=== PATIENT | male | born 1945 | race Caucasian/White ===

== ENCOUNTER 2017-03-08 14:00 | Inpatient (IN) | payer OTHER ==
[2017-03-08 14:07] VITALS: BMI 30.1
--- NOTE | 2017-03-08 14:19 | PDOC ---
History of Present Illness - General Chief Complaint: Nausea/Vomiting Stated Complaint: ABD PAIN,VOMITING Time Seen by Provider: 03/08/17 14:14 History Source: Patient Exam Limitations: No Limitations - History of Present Illness Initial Comments: 03/08/17 14:45 71 yo M with significant PMHx of HTN, CVA (s/p TPA) and BPH (TURP) presents to ED for one day h/o nausea and diarrhea. He states that since this morning after breakfast he felt upset stomach. He endorses 4 bouts of non-bloody diarrhea. While in ED he has vomited 2x non-bilous, non-bloody.Denies fevers, recent travel, recent antibiotic use, sick contacts, CP,HACKETT, SOB, abd. pain. Timing/Duration: 4-6 hours Severity: mild Modifying Factors: improves with: eating Associated Symptoms: reports: nausea/vomiting Past History - Past Medical History Allergies/Adverse Reactions: Allergies Allergy/AdvReac Type Severity Reaction Status Date / Time No Known Allergies Allergy Verified 03/08/17 14:07 Home Medications: Ambulatory Orders Amlodipine Bes/Olmesartan Med [Nathalia 10-40 mg Tablet] 1 each PO DAILY 03/08/17 Aspirin [ASA -] 81 mg PO DAILY 03/08/17 Atorvastatin Ca [Lipitor] 0 mg PO HS 03/08/17 Omeprazole Magnesium [Prilosec] 0 mg PO DAILY 03/08/17 HTN: Yes - Psycho/Social/Smoking Cessation Hx Anxiety: No Suicidal Ideation: No Smoking History: Never smoked Hx Alcohol Use: No Drug/Substance Use Hx: No Substance Use Type: None Review of Systems - Review of Systems Able to Perform ROS?: Yes Is the patient limited Mexican proficient: No Constitutional: Yes: Loss of Appetite Respiratory: No: Cough, Shortness of Breath Cardiac (ROS): No: Chest Pain, Edema ABD/GI: Yes: Diarrhea, Vomiting. No: Blood Streaked Bowels, Rectal Bleeding *Physical Exam - Vital Signs Last Vital Signs Temp Pulse Resp BP Pulse Ox 98.2 F 64 18 133/90 98 03/08/17 14:05 03/08/17 14:05 03/08/17 14:05 03/08/17 14:05 03/08/17 14:05 - Physical Exam General Appearance: Yes: Mild Distress HEENT: positive: EOMI, KEN Neck: positive: Supple Respiratory/Chest: positive: Lungs Clear, Normal Breath Sounds. negative: Respiratory Distress, Accessory Muscle Use Cardiovascular: positive: Tachycardia, Irregularly Irregular. negative: Edema, JVD, Murmur Vascular Pulses: Dorsalis-Pedis (R): 2+, Doralis-Pedis (L): 2+ Gastrointestinal/Abdominal: positive: Normal Bowel Sounds, Flat, Soft, Tenderness (mild epigastric. ). negative: Pulsatile Mass Musculoskeletal: positive: Normal Inspection, CVA Tenderness Extremity: positive: Normal Inspection, Normal Range of Motion Integumentary: positive: Normal Color, Dry, Warm. negative: Cyanotic, Erythema , Jaundice Neurologic: positive: Fully Oriented, Alert, Normal Mood/Affect, Normal Response , Motor Strength 5/5 Heart Score/ECG Review - ECG Intrepretation Rhythm: Irregularly Irregular - [place]: Normal - ECG Impressions Normal ECG: No Non-specific ST Elevation: No Ischemic Changes: No Tachycardia: Afib w/rapid Vent rate ED Treatment Course - LABORATORY CBC & Chemistry Diagram: 03/08/17 14:50 03/08/17 14:50 - RADIOLOGY Chest X-Ray Result: No Infiltrates Radiograph Interpretation: 03/08/17 16:49 TYPE/EXAM: RESULT: [id number] RAD/CHEST X-RAY PORTABLE* Rule out pneumonia or congestive heart failure Portable chest x-ray semierect Since 07/28/2009, the cardiac silhouette remains within normal limits in size and the lung is clear. Mediastinum and visualized osseous structures appear intact IMPRESSION: No significant interval change or acute lung disease is present. Reported By: Abel Guy MD Medical Decision Making - Medical Decision Making 03/08/17 14:51 71 yo M with significant PMHx of HTN, CVA (s/p TPA) and BPH (TURP) presents to ED for one day h/o nausea and diarrhea. Most likely viral enteritis. Will get stat labs (cbc, cmp, lipase) . Also ordered for baseline EKG. Will give zofran and pepcid for nausea as well bolus of 1L NS. 03/08/17 16:25 EKG - revealed afib with RVR. this is new onset given that I spoke with primary Dr. Sorto and no prior h/o afib. * Will order Mg, and troponin I * started on Lovenox 100mg SQ *DC/Admit/Observation/Transfer Diagnosis at time of Disposition: New onset a-fib, Gastroenteritis - Discharge Dispostion Admit: Yes - Referrals Referrals: Ihsan Sorto MD [Non Staff, Medical] - Rodney Rodriguez MD [Primary Care Provider] -
[2017-03-08] MEDS ORDERED: SODIUM CHLORIDE 1,000 ML IV STA ×2 (14:38→18:41)
[2017-03-08] MEDS ORDERED: ONDANSETRON 4 MG/2 ML VIAL IVPB ONE (14:38)
[2017-03-08] MEDS ORDERED: ONDANSETRON 4 MG/2 ML VIAL ONE (14:50)
[2017-03-08] MEDS ORDERED: FAMOTIDINE 20 MG/50 ML IVPB 50 ML IVPB ONE ×2 (15:06→15:12)
[2017-03-08 15:09] LABS: BASOPHIL 0.4 % (0-2.0); EOSINOPHIL 1.6 % (0-4.5); MCH 29.5 pg (25.7-33.7); MCHC 33.1 g/dl (32.0-35.9); MEAN CELL VOLUME 89.1 fl (80-96); MEAN PLT VOLUME 7.5 fl (7.5-11.1); NEUTROPHILS 86.3 % (42.8-82.8); PLATELET COUNT 242 K/MM3 (134-434); RDW 13.6 % (11.9-15.9); WHITE BLOOD COUNT 16.1 K/mm3 (4.0-10.0)
[2017-03-08] MEDS ORDERED: INSULIN (NOVOLOG MIX 70/30) 100 UNITS/ML MDV SQ ONE (15:13)
[2017-03-08] MEDS ORDERED: diazePAM CARPU-JECT 10 MG/2 ML DISP.SYRIN IVPUSH ONE ×2 (15:14→15:28)
--- NOTE | 2017-03-08 15:19 | PDOC ---
Attending Attestation - Resident Resident Name: Musa Rodgers - ED Attending Attestation I have performed the following: I have examined & evaluated the patient, The case was reviewed & discussed with the resident, I agree w/resident's findings & plan, Exceptions are as noted - HPI HPI: 03/08/17 15:11 71-year-old male with history of CVA and hypertension presents with nausea/ vomiting/diarrhea that began this morning after eating some cheese cake. No other red flags in terms of travel/sick contact/antibiotics, no abdominal pain. No cardiopulmonary complaints. - Physicial Exam PE: 03/08/17 15:12 blood pressure 130/90 Generally well-appearing, dry mucosa tachycardia abdomen benign, no guarding/rebound neuro intact - Critical Care Time Total Critical Care Time: 30 Critical Care Statement: The care of this patient involved high complexity decision making to prevent further life threatening deterioration of the patient 's condition and/or to evalute & treat vital organ system(s) failure or risk of failure. - Medical Decision Making 03/08/17 15:14 Patient seen and evaluated with the resident. I agree with the overall evaluation, assessment, and management with the following summary of visit: 71-year-old male presents with nausea/vomiting/diarrhea without abdominal pain, question viral versus toxin mediated. No cardiopulmonary complaints, no peritoneal findings. checking labs, anti-emetic, antacid ekg shows new afib with rvr: ivf, rate control reassess, likely admission 03/08/17 16:42 rate controlled with cardizem IV, remains in afib. given lovenox. cardiology consulted + leukocytosis, Cr slightly elevated. will admit for cardiac monitoring/evaluation
[2017-03-08 15:23] LABS: ALBUMIN 4.2 g/dl (3.4-5.0); BILIRUBIN,TOTAL 0.4 mg/dL (0.2-1.0); CALCIUM 9.3 mg/dL (8.5-10.1); COCKROFT - GAULT 64.25; CREATININE 1.4 mg/dL (0.7-1.3)
[2017-03-08] MEDS ORDERED: diazePAM CARPU-JECT 10 MG/2 ML DISP.SYRIN ONE (15:23)
[2017-03-08] MEDS ORDERED: dilTIAZem HCL 50 MG/10 ML - 10 ML VIAL IVPUSH ONE (15:29)
[2017-03-08] MEDS ORDERED: dilTIAZem HCL 125 MG/25 ML - 25 ML VIAL ONE (15:33)
[2017-03-08] MEDS ORDERED: ENOXAPARIN NA (PORCINE) 100 MG/1 ML DISP.SYRIN SQ ONE ×2 (15:52→16:27)
[2017-03-08] MEDS ORDERED: dilTIAZem HCL 30 MG TABLET (FP) PO ONE (15:52)
[2017-03-08] MEDS ORDERED: dilTIAZem HCL 30 MG TABLET (FP) ONE (16:27)
[2017-03-08 16:48] LABS: TROPONIN I < 0.02 ng/ml (0.00-0.05)
[2017-03-08 16:54] LABS: MAGNESIUM 2.3 mg/dL (1.8-2.4)
--- NOTE | 2017-03-08 17:58 | CON.CARD ---
Consult Consult Specialty:: Cardiology Referred by:: ER Reason for Consultation:: Newly dx afib - History of Present Illness Chief Complaint: nausea, vomiting, diarrhea, abd pain History of Present Illness: 71 year old man with a history of HTN, HLD, CVA 2009 s/p TPA, BPH, presented to the ER with nausea, vomiting, diarrhea and noted to be in newly dx afib with RVR. Pt seen and examined in the ER in nad. GI symptoms are improving. States he follows closely with his PMD Dr. Sorto who was contacted by the ER and confirmed that he has no history of Afib. Pt denies any palpitations. No chest pain, sob. No pnd, orthopnea, or LE edema. No lightheadedness or dizziness. Denies any bleeding. No black or bloody stools. - History Source History Provided By: Patient, Medical Record Limitations to Obtaining History: No Limitations - Past Medical History JAVASCRIPT WEB DEVELOPER: Yes: CVA Cardio/Vascular: Yes: HTN, Hyperlipdemia Renal/: Yes: BPH - Alcohol/Substance Use Hx Alcohol Use: No - Smoking History Smoking history: Never smoked - Social History ADL: Independent History of Recent Travel: No Home Medications - Allergies Allergies/Adverse Reactions: Allergies Allergy/AdvReac Type Severity Reaction Status Date / Time No Known Allergies Allergy Verified 03/08/17 14:07 - Home Medications Home Medications: Ambulatory Orders Amlodipine Bes/Olmesartan Med [Nathalia 10-40 mg Tablet] 1 each PO DAILY 03/08/17 Aspirin [ASA -] 81 mg PO DAILY 03/08/17 Atorvastatin Ca [Lipitor] 0 mg PO HS 03/08/17 Omeprazole Magnesium [Prilosec] 0 mg PO DAILY 03/08/17 Family Disease History - Family Disease History Family History: Denies Review of Systems - Review of Systems Constitutional: denies: No Symptoms, Chills, Diaphoresis, Fever, Lethargy, Loss of Appetite, Malaise, Night Sweats, Unintentional Wgt. Loss, Weakness, Other Eyes: denies: No Symptoms, Blind Spots, Blurred Vision, Double Vision, Eye Pain , Floaters, Photophobia, Recent Change in Vision, Other HENT: denies: No Symptoms, Difficult Swallowing, Ear Discharge, Ear Pain, Epistaxis, Gingival Bleeding, Hearing Loss, Mouth Swelling, Nasal Congestion, Ocular Prosthesis, Throat Pain, Toothache, Ringing in Ears, Other Neck: denies: No Symptoms, Decreased ROM, Lumps, Pain on Movement, Stiffness, Swollen Glands, Tenderness, Other Cardiovascular: denies: No Symptoms, Chest Pain, Edema, Palpitations, Shortness of Breath, Other Respiratory: denies: No Symptoms, Cough, Exercise Intolerance, Hemoptysis, Orthopnea, PND, Snoring, SOB, SOB on Exertion, Wheezing, Other Gastrointestinal: reports: Abdominal Pain, Diarrhea, Nausea, Vomiting. denies: No Symptoms, Bloating, Constipation, Dysphagia, Indigestion, Melena, Rectal Bleeding, Vomiting Blood, Other Genitourinary: denies: No Symptoms, Burning, Discharge, Dysuria, Flank Pain, Frequency, Hematuria, Incontinence, Lesions, Menses, Pain, Testicular Mass, Testicular Pain, Testicular Swelling, Urgency, Vaginal Bleeding, Other Breasts: denies: No Symptoms Reported, See HPI, Breast Implants, Discharge from Nipple, Lumps, Pain, Skin Changes, Other Musculoskeletal: denies: No Symptoms, Back Pain, Crepitus, Decreased ROM, Extremity Pain, Joint Pain, Joint Swelling, Muscle Pain, Muscle Cramps, Muscle Weakness, Other Integumentary: denies: No Symptoms, Blister, Bruising, Change in Color, Eczema, Erythema, Incision, Lesions, Lump, Pallor, Pruritis, Rash, Wound, Other Neurological: denies: No Symptoms, Change in LOC, Change in Speech, Confusion, Dizziness, Headache, Incoordination, Numbness, Parasthesia, Pre-Existing Deficit , Seizure, Syncope, Tremors, Unsteady Gait, Weakness, Other Endocrine: denies: No Symptoms, Excessive Sweating, Flushing, Increased Hunger, Increased Thirst, Intolerance to Cold, Intolerance to Heat, Unexplained Weight Gain, Unexplained Weight Loss, Other Hematology/Lymphatic: denies: No Symptoms, Easily Bruised, Excessive Bleeding, Swollen Glands, Other Psychiatric: denies: No Symptoms, Altered Sleep Pattern, Anxiety, Depression, Hallucinations, Panic, Paranoia, Suicidal, Other - Risk Factors Known Risk Factors: Yes: Hypercholesterolemia, Hypertension, Prior [place] /Emb Stroke Vital Signs: Vital Signs Temperature 98.2 F 03/08/17 14:05 Pulse Rate 96 H 03/08/17 15:35 Respiratory Rate 18 03/08/17 15:35 Blood Pressure 122/60 03/08/17 15:35 O2 Sat by Pulse Oximetry (%) 98 03/08/17 15:35 Constitutional: Yes: Well Nourished, No Distress, Calm Eyes: Yes: WNL, Conjunctiva Clear, EOM Intact, PERRL HENT: Yes: WNL, Atraumatic, Normocephalic Neck: Yes: WNL, Supple, Trachea Midline Respiratory: Yes: WNL, Regular, CTA Bilaterally. No: Rales, Rhonchi, Wheezes Gastrointestinal: Yes: WNL, Normal Bowel Sounds. No: Distention, Tenderness Renal/: Yes: WNL Cardiovascular: Yes: Tachycardia, Pulse Irregular. No: Bradycardia, Gallop, Rub , Varicosities JVD: No Carotid Bruit: No PMI: Non-Displaced Heart Sounds: Yes: S1, S2. No: Split S2, S3, S4, Clicks, Gallop, Rub, Bruit Murmur: No: Systolic Murmur, Diastolic Murmur Musculoskeletal: Yes: WNL, Other (L calf cramps) Extremities: Yes: WNL Edema: No Peripheral Pulses WNL: Yes Peripheral Pulses: 2+ Left Doralis Pedis, 2+ Right Dorsalis Pedis Integumentary: Yes: WNL Neurological: Yes: WNL, Alert, Oriented, Cran Nerves II-XII Intact ...Motor Strength: WNL Psychiatric: Yes: WNL, Alert, Oriented - Other Data Labs, Other Data: CBC, BMP 03/08/17 14:50 03/08/17 14:50 Troponin, BNP 03/08/17 14:45 Troponin I < 0.02 Troponin, BNP 03/08/17 14:45 Troponin I < 0.02 ekg-AFib 127bpm, nonspecific ST abnl Echo: Pending Imaging - Results Chest X-ray: Report Reviewed, Image Reviewed EKG: Report Reviewed, Image Reviewed Other: Report Reviewed, Image Reviewed Problem List - Problems (1) Gastroenteritis Code(s): K52.9 - NONINFECTIVE GASTROENTERITIS AND COLITIS, UNSPECIFIED (2) New onset a-fib Code(s): I48.91 - UNSPECIFIED ATRIAL FIBRILLATION (3) Atrial fibrillation with RVR Code(s): I48.91 - UNSPECIFIED ATRIAL FIBRILLATION (4) Anticoagulation management encounter Code(s): Z51.81 - ENCOUNTER FOR THERAPEUTIC DRUG LEVEL MONITORING Z79.01 - KENNEL HELPER (CURRENT) USE OF ANTICOAGULANTS (5) HTN (hypertension) Code(s): I10 - ESSENTIAL (PRIMARY) HYPERTENSION (6) HLD (hyperlipidemia) Code(s): E78.5 - HYPERLIPIDEMIA, UNSPECIFIED (7) CVA (cerebral vascular accident) Code(s): I63.9 - CEREBRAL INFARCTION, UNSPECIFIED Assessment/Plan 71 year old man with a history of HTN, HLD, CVA 2009 s/p TPA, BPH, presented to the ER with nausea, vomiting, diarrhea and noted to be in newly dx afib with RVR. Atrial fibrillation-newly diagnosed with RVR in the setting of nausea, vomiting , diarrhea -likely paroxysmal afib -HR improving with tx in the ER, given Cardizem, IVF, Lovenox -monitor on tele -likely will convert to NSR overnight with further treatment -will start Toprol XL 25mg daily first dose now (pt is on amlodipine for HTN, will try to avoid 2 calcium channel blockers) -discussed risks/benefits/alternatives of full AC with pt, he has a history of CVA and HTN, full AC is indicated -will start eliquis 5mg po bid to start at 430am tomorrow (12hours after Lovenox given) -need for continued ASA (in addition to full AC) to be determined by PMD or neurologist as he is on it due to his past CVA -check echo tomorrow am HTN-adequately controlled -cont home Nathalia -starting Toprol as above HLD -cont home statin
--- NOTE | 2017-03-08 18:34 | PN ---
Teaching Attending Note Name of Resident: Cassy Johnstno ATTENDING PHYSICIAN STATEMENT I saw and evaluated the patient. I reviewed the resident's note and discussed the case with the resident. I agree with the resident's findings and plan as documented. SUBJECTIVE:71yo M c/o sudden onset of N/V/D that started today. multiple episodes of retching with vomiting bilious material and food particles. 4 episodes of loose BM. pt notes he ate cheesecake which sat out on the counter for several days (when it shouldve been refrigerated) stated he started to feel lightheaded which prompted him to the ER. stated that he had carotid dopplers done by PMD last month and gets EKG twice a year and has never been told he had afib. had CVA several years ago which he had MONIKA at that time but never had other cardiac workup in the past. admits to drinking 1-2 manhattans a day. smoker in the past daughter had recent ablation for PVC's OBJECTIVE: Last Vital Signs Temp Pulse Resp BP Pulse Ox 98.2 F 96 H 18 122/60 98 03/08/17 14:05 03/08/17 15:35 03/08/17 15:35 03/08/17 15:35 03/08/17 15:35 General NAD CV S1 S2 irregular rate and rhythm no murmur Lungs CTA B/L no wheezing/rales/rhonchi Abdomen soft NT/ND Extremities no pedal edema ASSESSMENT AND PLAN: 71yo M wtih PMH CVA, BPH and HTN presented to the ER and was admitted for further evaluation of their emergent condition 1. New onset afib with RVR-could be due to hypovolemia and ETOH use. rate remains uncontrolled. received cardizem IVP in the ER. will switch to betablocker as pt is already on CCB. check TSH, check Echo. received lovenox in the ER. will start noac tomorrow. [id number] >2, d/w pt and daughter present risks/benefit profile. also educated on risk of noac on frequent drinking, will d/w cardio about continuing asa vs holding at this time with starting noac. cont cardiac monitoring. trend cardiac markers 2. Leukocytosis-likely food poising vs acute phase reactant .afebrile. will hold on starting abx at this time. supportive care, antiemetic. ivf 3. WAQAR- likely hypovolemic. will start IVF. avoid nephrotoxic agents. hold ARB 4. CVA s/p TPA- no residual deficits. on asa. will d/w cardio about continuing at this time vs holding 5. DVT ppx- lovenox
[2017-03-08] MEDS ORDERED: METOPROLOL SUCCINATE 50 MG TAB.SR.24H (FP) ONE (18:37)
[2017-03-08] MEDS: METOPROLOL SUCCINATE 25 MG TAB.SR.24H (FP) PO SCH (18:40)
[2017-03-08] MEDS ORDERED: METOPROLOL TARTRATE 5 MG/5 ML VIAL IVPUSH PRN (18:52)
[2017-03-08] MEDS ORDERED: ONDANSETRON 4 MG TABLET PO PRN (18:57)
--- NOTE | 2017-03-08 19:03 | HP ---
CHIEF COMPLAINT: epigastric pain PCP:Dr. Sorto HISTORY OF PRESENT ILLNESS: 71 year old male with a Past Medical History of hypertension, social drinker (2- 3x per week), s/p CVA in 2008 (tpa used, no residual defect), presents to the emergency room with mid epigastric pain, burning in nature, no radiation, accompanied with nausea, retching and 3 episodes of non bloody diarrhea x1 day after eating old homemade cheesecake. Denies chest wall tenderness, palpations , sob, HACKETT, leg swelling. On admission patient tachycardic and normotensive. ER course was notable for: (1)wbc 16.1; Cr 1.4 ; baseline unknown (2)ECG atrial fib w rvr (3)cardizem and lovenox given; cardio consulted Recent Travel: no PAST MEDICAL HISTORY: HTN, CVA PAST SURGICAL HISTORY: Social History: Smoking:no Alcohol:2-3 martinis per week Drugs: no Family History: Allergies No Known Allergies Allergy (Verified 03/08/17 14:07) HOME MEDICATIONS: Home Medications Medication Instructions Recorded Amlodipine Bes/Olmesartan Med 1 each PO DAILY 03/08/17 [Nathalia 10-40 mg Tablet] Aspirin [ASA -] 81 mg PO DAILY 03/08/17 Atorvastatin Ca [Lipitor] 0 mg PO HS 03/08/17 Omeprazole Magnesium [Prilosec] 0 mg PO DAILY 03/08/17 REVIEW OF SYSTEMS CONSTITUTIONAL: Absent: fever, chills, diaphoresis, generalized weakness, malaise, loss of appetite, weight change HEENT: Absent: rhinorrhea, nasal congestion, throat pain, throat swelling, difficulty swallowing, mouth swelling, ear pain, eye pain, visual changes CARDIOVASCULAR: Absent: chest pain, syncope, palpitations, irregular heart rate, lightheadedness , peripheral edema RESPIRATORY: Absent: cough, shortness of breath, dyspnea with exertion, orthopnea, wheezing, stridor, hemoptysis GASTROINTESTINAL: POsitive: abdominal pain, abdominal distension, nausea, vomiting, diarrhea Absent: , constipation, melena, hematochezia GENITOURINARY: Absent: dysuria, frequency, urgency, hesitancy, hematuria, flank pain, genital pain MUSCULOSKELETAL: Absent: myalgia, arthralgia, joint swelling, back pain, neck pain SKIN: Absent: rash, itching, pallor HEMATOLOGIC/IMMUNOLOGIC: Absent: easy bleeding, easy bruising, lymphadenopathy, frequent infections ENDOCRINE: Absent: unexplained weight gain, unexplained weight loss, heat intolerance, cold intolerance NEUROLOGIC: Absent: headache, focal weakness or paresthesias, dizziness, unsteady gait, seizure, mental status changes, bladder or bowel incontinence PSYCHIATRIC: Absent: anxiety, depression, suicidal or homicidal ideation, hallucinations. PHYSICAL EXAMINATION Vital Signs - 24 hr 03/08/17 18:40 Pulse Rate [ 90 Apical] Respiratory 18 Rate Blood Pressure 120/68 [Left Arm] O2 Sat by Pulse 99 Oximetry (%) GENERAL: Awake, alert, and fully oriented, in no acute distress. HEAD: Normal with no signs of trauma. EYES: Pupils equal, round and reactive to light, extraocular movements intact, sclera anicteric, conjunctiva clear. No lid lag. EARS, NOSE, THROAT: Ears normal, nares patent, oropharynx clear without exudates. Moist mucous membranes. NECK: Normal range of motion, supple without lymphadenopathy, JVD, or masses. LUNGS: Breath sounds equal, clear to auscultation bilaterally. No wheezes, and no crackles. No accessory muscle use. HEART: Regular rate and rhythm, normal S1 and S2 without murmur, rub or gallop. ABDOMEN: Soft, nontender, not distended, normoactive bowel sounds, no guarding, no rebound, no masses. No hepatomegaly or splenomegaly. MUSCULOSKELETAL: Normal range of motion at all joints. No bony deformities or tenderness. No CVA tenderness. UPPER EXTREMITIES: 2+ pulses, warm, well-perfused. No cyanosis. No clubbing. No peripheral edema. LOWER EXTREMITIES: 2+ pulses, warm, well-perfused. No calf tenderness. No peripheral edema. NEUROLOGICAL: Cranial nerves II-XII intact. Normal speech. Normal gait. PSYCHIATRIC: Cooperative. Good eye contact. Appropriate mood and affect. SKIN: Warm, dry, normal turgor, no rashes or lesions noted, normal capillary refill. CBC, BMP 03/08/17 14:50 03/08/17 14:50 ASSESSMENT/PLAN: 71 year old male with a PMHxof HTN,cva s/p tpa in 2008; presents tot he ER with abdominal pain, n, v, d, ; ECG showing new onset atrial fibrillation. #New onset atrial fibrillation: -cardizem 10mg IV x1 given in ED; 1x 30mg cardizem given in ED -lovenox 100mg 1x given in ED -troponin x1 wnl; 2nd pending -continue with metoprolol succinate 25mg daily -metoprolol 5mg IV push prn for HR >125 -echo pending -TSH pending -lipid profile -start on noac tomorrow eliquis 5mg po bid -cardio consulted #leukocytosis secondary to viral gastroenteritis vs bacterial -trend white count -zofran, antacid -ivf #acute kidney injury most likely due to acute infection dehydration from diarrhea/vomit -BUN/Cr 24/1.4; trend -gentle hydration FEN: Fluids: NS 1x bolus Electrolytes:wnl Diet: cardiac VTE: already given lovenoos, start noac in am Disposition: monitor on tele; Visit type - Emergency Visit Emergency Visit: Yes ED Registration Date: 03/08/17 Care time: The patient presented to the Emergency Department on the above date and was hospitalized for further evaluation of their emergent condition. - New Patient This patient is new to me today: Yes Date on this admission: 03/08/17 - Critical Care Critical Care patient: No
[2017-03-08] MEDS ORDERED: ATORVASTATIN CA 10 MG TABLET (FP) PO SCH (22:00)
[2017-03-09] MEDS: APIXABAN 5 MG TABLET PO SCH ×2 (06:07→11:37)
[2017-03-09 06:09] VITALS: PULSE 80
[2017-03-09 07:47] LABS: BASOPHIL 0.6 % (0-2.0); EOSINOPHIL 3.4 % (0-4.5); MCHC 33.7 g/dl (32.0-35.9); MEAN PLT VOLUME 7.9 fl (7.5-11.1); NEUTROPHILS 68.3 % (42.8-82.8); PLATELET COUNT 222 K/MM3 (134-434); RDW 13.9 % (11.9-15.9); WHITE BLOOD COUNT 7.1 K/mm3 (4.0-10.0)
[2017-03-09 08:20] LABS: MAGNESIUM 2.2 mg/dL (1.8-2.4)
[2017-03-09 08:23] LABS: PHOSPHOROUS 2.8 mg/dL (2.5-4.9)
--- NOTE | 2017-03-09 09:09 | PN ---
Progress Note, Physician Chief Complaint: feels well. no palpitations No CP or SOB Nausea and vomiting subsided - Current Medication List Current Medications: Active Medications Apixaban (Eliquis -) 5 mg PO BID [facility] Last Admin: 03/09/17 06:07 Dose: 5 mg Atorvastatin Calcium (Lipitor -) 10 mg PO HS [facility] Last Admin: 03/08/17 23:09 Dose: Not Given Metoprolol Succinate (Toprol Xl -) 25 mg PO DAILY [facility] Last Admin: 03/08/17 18:40 Dose: 25 mg Metoprolol Tartrate (Lopressor Injection -) 5 mg IVPUSH Q4H PRN PRN Reason: HYPERTENSION Ondansetron HCl (Zofran -) 4 mg PO Q4H PRN PRN Reason: NAUSEA AND/OR VOMITING Ranitidine HCl (Zantac -) 150 mg PO DAILY [facility] - Objective Vital Signs: Vital Signs Temperature 98.4 F 03/09/17 06:07 Pulse Rate 80 03/09/17 06:07 Respiratory Rate 20 03/09/17 06:07 Blood Pressure 113/77 03/09/17 06:07 O2 Sat by Pulse Oximetry (%) 99 03/09/17 06:07 Constitutional: Yes: No Distress Cardiovascular: Yes: Pulse Irregular Respiratory: Yes: CTA Bilaterally Gastrointestinal: Yes: Soft Edema: No Neurological: Yes: WNL ...Motor Strength: WNL Labs: CBC, BMP 03/09/17 06:05 Laboratory Tests 03/08/17 03/08/17 03/08/17 14:45 14:50 20:30 WBC Hct Plt Count Potassium 4.6 Creatinine 1.4 H Troponin I < 0.02 < 0.02 TSH 03/09/17 03/09/17 06:05 06:05 WBC 7.1 D Hct 39.8 Plt Count 222 Potassium Creatinine Troponin I TSH Pending - ....Imaging EKG: Image Reviewed Assessment/Plan 71 year old man with a history of HTN, HLD, CVA 2009 s/p TPA, BPH, presented to the ER with nausea, vomiting, diarrhea and noted to be in newly dx afib with RVR. Atrial fibrillation-newly diagnosed with RVR in the setting of nausea, vomiting , diarrhea -likely PAF -ECG today: difficult to tell if NSR with APCs or AF (controlled) on exam -Echo -Plan for d/c later today on Eliquis and Toprol with close follow with Dr. Fitch early next week: office # [phone]
[2017-03-09 09:48] LABS: THYROID STIMULATING HORMONE 0.67 uIU/ml (0.358-3.74)
[2017-03-09] MEDS ORDERED: RANITIDINE HCL 150 MG TABLET (FP) PO SCH (10:00)
[2017-03-09 10:48] VITALS: BP 115/68; TEMP 98.8
[2017-03-09] MEDS: METOPROLOL SUCCINATE 25 MG TAB.SR.24H (FP) PO SCH (11:37)
[2017-03-09 12:25] LABS: CALCIUM 8.4 mg/dL (8.5-10.1); COCKROFT - GAULT 74.96; CREATININE 1.2 mg/dL (0.7-1.3)
--- NOTE | 2017-03-09 12:27 | EKG ---
Test Reason : Blood Pressure : / mmHG Vent. Rate : 123 BPM Atrial Rate : 123 BPM P-R Int : 000 ms QRS Dur : 098 ms QT Int : 298 ms P-R-T Axes : 000 030 059 degrees QTc Int : 426 ms ATRIAL FIBRILLATION WITH RAPID VENTRICULAR RESPONSE ABNORMAL ECG WHEN COMPARED WITH ECG OF 28-JUL-2009 10:11, ATRIAL FIBRILLATION HAS REPLACED SINUS RHYTHM VENT. RATE HAS INCREASED BY 41 BPM Confirmed by MALIK VALADEZ, JANINE ([id number]) on 03/09/2017 12:26:31 PM Referred By: Confirmed By:JANINE GAN MD
--- NOTE | 2017-03-09 14:39 | PN ---
Teaching Attending Note Name of Resident: Cassy Johnston ATTENDING PHYSICIAN STATEMENT I saw and evaluated the patient. I reviewed the resident's note and discussed the case with the resident. I agree with the resident's findings and plan as documented. SUBJECTIVE:asymptomatic. states nausea/vomiting/diarrhea has all resolved. denies CP, SOB, palpitations, N/V/C/D OBJECTIVE: Last Vital Signs Temp Pulse Resp BP Pulse Ox 98.8 F 80 20 115/68 99 03/09/17 10:00 03/09/17 10:03/09/17 10:03/09/17 10:03/09/17 06:07 General NAD CV S1 S2 irregular. no murmur Lungs CTA B/L no wheezing/rales/rhonchi ASSESSMENT AND PLAN: 71yo M [facility] PMH CVA, BPH and HTN presented to the ER and was admitted for further evaluation of their emergent condition 1. New onset afib with RVR-Rate controlled. cardiac markers neg x2. TSH WNL. HR controlled on metoprolol. started eliquis this morning. echo done with no wall motion abnormalities. will need to follow up with cardiology next week for further workup. 2. Leukocytosis-likely food poising vs acute phase reactant .afebrile. resolved 3. WAQAR- likely hypovolemic. improved on IVF 4. CVA s/p TPA- no residual deficits.will hold asa at this time. will need to d/ w PMD about continuing in addition to blood thinner as it was started for CVA prevention 5. HTN- controlled. home medication of norvasc/arb was held and bP remained control. will hold at this time. 6. DVT ppx-eliquis 7. d/c home iwth PMD and cardio follow up this week. counseled pt with present about medication compliance and risk of blood thinners. answered all questions. verbalized understanding and agreement iwth plan.
--- NOTE | 2017-03-09 17:14 | DS ---
[id number] OBJECTIVE: Vital Signs Period Temp Pulse Resp BP Sys/Thapa Pulse Ox Last 24 Hr 98.3 F-98.8 F 78-90 18-20 102-120/61-77 99-99 PHYSICAL EXAM GENERAL: The patient is awake, alert, and fully oriented, in no acute distress. HEAD: Normal with no signs of trauma. EYES: PERRL, extraocular movements intact, sclera anicteric, conjunctiva clear. ENT: Ears normal, nares patent, oropharynx clear without exudates, moist mucous membranes. NECK: Trachea midline, full range of motion, supple. LUNGS: Breath sounds equal, clear to auscultation bilaterally, no wheezes, no crackles, no accessory muscle use. HEART: ausculated this morning sounded regular with possible extra beats; Regular rate S1, S2 without murmur, rub or gallop. ABDOMEN: Soft, nontender, nondistended, normoactive bowel sounds, no guarding, no rebound, no hepatosplenomegaly, no masses. EXTREMITIES: 2+ pulses, warm, well-perfused, no edema. NEUROLOGICAL: Cranial nerves II through XII grossly intact. Normal speech, gait not observed. PSYCH: Normal mood, normal affect. SKIN: Warm, dry, normal turgor, no rashes or lesions noted. LABS Laboratory Results - last 24 hr 03/08/17 03/09/17 03/09/17 20:30 06:05 06:05 WBC 7.1 D RBC 4.47 Hgb 13.4 D Hct 39.8 MCV 89.0 MCHC 33.7 RDW 13.9 Plt Count 222 MPV 7.9 Neutrophils % 68.3 D Lymphocytes % 19.9 D Monocytes % 7.8 Eosinophils % 3.4 D Basophils % 0.6 Sodium 141 Potassium 4.6 Chloride 110 H Carbon Dioxide 22 Anion Gap 9 BUN 30 H Creatinine 1.2 Random Glucose 77 D Calcium 8.4 L Phosphorus 2.8 Magnesium 2.2 Troponin I < 0.02 Triglycerides 83 Cholesterol 132 Total LDL Cholesterol 71 HDL Cholesterol 48 TSH 0.67 03/09/17 06:05 WBC RBC Hgb Hct MCV MCHC RDW Plt Count MPV Neutrophils % Lymphocytes % Monocytes % Eosinophils % Basophils % Sodium Potassium Chloride Carbon Dioxide Anion Gap BUN Creatinine Random Glucose Calcium Phosphorus Magnesium Troponin I Triglycerides Cholesterol Total LDL Cholesterol HDL Cholesterol TSH Cancelled HOSPITAL COURSE: Date of Admission:03/08/17 Date of Discharge: 03/09/17 71 year old male with a PMHx of HTN, cva s/p tpa in 2008; presents to the ER with abdominal pain nausea, retching, diarrhea x1 day after eating old cheesecake. ECG in emergency room significant for atrial fibrillation. This was new for the patient. He has never diagnoses with a irregular heart rhythm. Rate initially controlled with cardizem 10mg IV, then with metoprolol succinate 25mg daily. He was given full dose lovenox on the ER and started on eliquis 5mg bid thereafter. Echo showing normal left and right ventricular function, mild tricuspid and aortic regurgitation. Troponins negative. TSH was normal. This new onset atrial fibrillation could be secondary to acute viral gastroenterits, dehydration vs other etiology. Cardiology consulted, patient will follow up. Leukocytosis was secondary to acute gastroenteritis and resolved the next day. Acute kidney injury most likely due to acute infection dehydration from diarrhea , resolved with hydration. Minutes to complete discharge: 35 <Cassy Johnston - Last Filed: 03/09/17 16:53> Physical Exam: Instructed pt to hold home antihypertensive medication. informed of risks/ benefits of blood thinner. encouraged to follow up with PMD this week for further BP assessment as well as cardio. <Gillian Flores - Last Filed: 03/10/17 08:41> Discharge Summary Reason For Visit: GASTROENTERITIS/NEW ONSET ATRIAL FIBRILLATION Current Active Problems Anticoagulation management encounter (Acute) Atrial fibrillation with RVR (Acute) CVA (cerebral vascular accident) (Acute) Gastroenteritis (Acute) HLD (hyperlipidemia) (Acute) HTN (hypertension) (Acute) New onset a-fib (Acute) - Home Medications Comprehensive Discharge Medication List: Ambulatory Orders Apixaban [Eliquis -] 5 mg PO BID #60 tablet 03/09/17 Atorvastatin Ca [Lipitor] 10 mg PO HS #30 tab 03/09/17 Metoprolol Succinate [Toprol XL -] 25 mg PO DAILY #30 tab 03/09/17 Omeprazole Magnesium [Prilosec] 10 mg PO DAILY #0 tab 03/09/17 <Cassy Johnston - Last Filed: 03/09/17 16:53> - Home Medications Comprehensive Discharge Medication List: Ambulatory Orders Apixaban [Eliquis -] 5 mg PO BID #60 tablet 03/09/17 Atorvastatin Ca [Lipitor] 10 mg PO HS #30 tab 03/09/17 Metoprolol Succinate [Toprol XL -] 25 mg PO DAILY #30 tab 03/09/17 Omeprazole Magnesium [Prilosec] 10 mg PO DAILY #0 tab 03/09/17 <Gillian Flores - Last Filed: 03/10/17 08:41> Condition: Improved - Instructions Diet, Activity, Other Instructions: Mr. Douglass, you have been diagnosed with a viral gastroenteritis, upon examination of your condition, your heart rhythm was found to be irregular. We have changed your medications appropriately to control your heart rate and started you on a blood thinner. Please follow up with your primary physician with in one week. We would also like you to follow up with the park recreation manager in a week, for further evaluation and treatment for your condition. Discuss with your primary care doctor about resuming your aspirin. Hold this medication until you discuss with him. If you experience any worsening of symptoms, including chest pain, shortness of breath, please Emergency room. Referrals: Fernie Fitch MD [Staff Physician] - Ihsan Sorto MD [Non Staff, Medical] - Rodney Rodriguez MD [Primary Care Provider] - Disposition: HOME This patient is new to me today: No Emergency Visit: Yes ED Registration Date: 03/08/17 Care time: The patient presented to the Emergency Department on the above date and was hospitalized for further evaluation of their emergent condition. Critical Care patient: No - Discharge Referral Referred to [facility] Med P.C[facility] No <Cassy Johnston - Last Filed: 03/09/17 16:53>
== END 2017-03-09 16:06 | disposition home or self-care (01) | DRG 309 ==
LOC: JER 14:00 → JERBED 17:01
PROVIDERS: ADMIT Internal Medicine; ATTEND Internal Medicine
DX: I48.0 Paroxysmal atrial fibrillation (principal); N17.9 Acute kidney failure, unspecified; E86.0 Dehydration; K52.9 Noninfective gastroenteritis and colitis, unspecified; I10 Essential (primary) hypertension; Z86.73 Personal history of transient ischemic attack (TIA), and cerebral infarction without residual deficits; D72.829 Elevated white blood cell count, unspecified; E78.5 Hyperlipidemia, unspecified; N40.0 Benign prostatic hyperplasia without lower urinary tract symptoms
CPT/HCPCS: 36415; 71010-TC; 80048; 80053; 80061; 83690; 83721; 83735; 84100; 84443; 84484; 85025; 93005; 93010; 93306-TC; 99285-25